=== PATIENT | female | born 1995 | race Caucasian/White ===

== ENCOUNTER → 2018-12-07 14:39 | Outpatient (CLI) | payer OTHER, MEDICAID, SELFPAY ==
[2018-12-07 15:19] LABS: Add Manual Diff / Slide Review NO; Basophils Absolute Auto 100 /uL (0-100); Basophils Percent Auto 0.7 % (0-2); Eosinophils Absolute Auto 300 /uL (0-450); Eosinophils Percent Auto 3.6 % (2-4); Hematocrit 37.2 % (36-46); Hemoglobin 12.5 g/dL (12.0-16.0); Lymphocytes Absolute Auto 3100 /uL (1100-4500); Mean Corpuscular HGB Conc 33.7 % (30-36); Mean Corpuscular Hemoglobin 29.1 PG (26-34); Mean Corpuscular Volume 86.5 fL (80-100); Monocytes Absolute Auto 500 /uL (0-900); Monocytes Percent Auto 5.9 % (3-14); Neutrophils Absolute Auto 5100 /uL (1500-7000); Neutrophils Percent Auto 55.8 % (50-75); Platelet Count 281 X10^3/uL (150-400); Red Cell Distribution Width 13.4 % (11.6-14.8); White Blood Cell Count 9.2 X10^3/uL (4.5-11.0)
[2018-12-07 16:14] LABS: HEMOLYSIS < 15 (0-50); Iron 113 ug/dL (37-170)
[2018-12-07 16:17] LABS: Alanine Aminotransferase 31 IU/L (9-52); Albumin Globulin Ratio 1.4 (1.0-2.8); Alkaline Phosphatase 36 U/L (38-126); Aspartate Aminotransferase 15 IU/L (14-36); Bilirubin Total 1.7 mg/dL (0.2-1.3); Blood Urea Nitrogen 9 mg/dL (7-17); Calcium 8.9 mg/dL (8.4-10.2); Carbon Dioxide 25 mmol/L (22-32); Chloride 102 mmol/L (98-107); Estimated Glomerular Filt Rate > 60.0 mL/min (>60); Globulin 2.8 g/dL (1.7-4.1); Glucose 83 mg/dL (70-100); HEMOLYSIS < 15 (0-50); Potassium 3.8 mmol/L (3.4-5.1); Sodium 138 mmol/L (137-145); Total Protein 6.8 g/dL (6.3-8.2)
[2018-12-07 16:26] LABS: Percent Iron Saturation 33 % (15-50); Total Iron Binding Capacity 341 ug/dL (265-497); Transferrin 249 mg/dL (206-381)
[2018-12-07 16:28] LABS: Vitamin D 25 Hydroxy (D3) 12.9 ng/mL (30.0-100.0)
[2018-12-07 16:46] LABS: Thyroid Stimulating Hormone 3.03 uIU/mL (0.47-4.68)
[2018-12-07 16:51] LABS: Ferritin 64.9 ng/mL (6.27-137)
[2018-12-07 17:07] LABS: Vitamin B12 420 pg/mL (239-931)
== END ==
PROVIDERS: Visit Provider Physician Assistant
DX: E03.9 Hypothyroidism, unspecified (principal); E63.9 Nutritional deficiency, unspecified; F32.9 Major depressive disorder, single episode, unspecified; F41.9 Anxiety disorder, unspecified; F42.9 Obsessive-compulsive disorder, unspecified; F43.10 Post-traumatic stress disorder, unspecified; R53.83 Other fatigue; R79.89 Other specified abnormal findings of blood chemistry
CPT/HCPCS: 36415; 80053; 82306; 82607; 82728; 83540; 83550; 84443; 85025